=== PATIENT | female | born 1995 | race African-American/Black ===

== ENCOUNTER 2020-01-18 12:42 | Inpatient (IN) | payer OTHER ==
[2020-01-18 15:29] VITALS: BMI 31.0
[2020-01-18] MEDS ORDERED: OXYTOCIN 30 UNITS in 0.9% NS 30 UNIT/500 ML INFUS.BAG IVPB SCH (15:30)
[2020-01-18] MEDS ORDERED: DEXTROSE 5%-LACTATED RINGERS 1,000 ML IV SCH (16:00)
[2020-01-18] MEDS ORDERED: OXYTOCIN 30 UNITS in 0.9% NS 30 UNIT/500 ML INFUS.BAG IVPB ONE (17:33)
[2020-01-18] MEDS ORDERED: BUTORPHANOL TARTRATE 1 MG/ML VIAL IVPB ONE (22:35)
[2020-01-18] MEDS ORDERED: PROMETHAZINE HCL 25 MG/1 ML VIAL IVPB ONE (22:36)
[2020-01-19] MEDS ORDERED: CITRIC ACID/SODIUM CITRATE 30 ML UNIT-DOSE CUP PO ONE (07:42)
[2020-01-19] MEDS ORDERED: ELECTROLYTE-148 SOLN 1,000 ML IV SCH (07:45)
[2020-01-19] MEDS ORDERED: morphine SULFATE/PF 0.5 MG/ML (2cc Syringe - QUVA) ONE (08:16)
[2020-01-19] MEDS ORDERED: PHENYLEPHRINE HCL 10 MG/1 ML SINGLE DOSE VIAL ONE (08:16)
[2020-01-19] MEDS ORDERED: KETAMINE HCL 500 MG/10 ML VIAL ONE (08:48)
[2020-01-19] MEDS ORDERED: MIDAZOLAM HCL 2 MG/2 ML SINGLE DOSE VIAL ONE ×2 (09:15→09:24)
[2020-01-19] MEDS ORDERED: ceFAZolin SODIUM 1 GM VIAL ONE ×2 (09:15)
[2020-01-19] MEDS ORDERED: OXYTOCIN 10 UNITS/ML VIAL ONE ×4 (09:15→09:44)
[2020-01-19] MEDS ORDERED: IBUPROFEN 600 MG TABLET (FP) PO PRN (09:56)
[2020-01-19] MEDS ORDERED: METHYLERGONOVINE MALEATE 0.2 MG/1 ML AMP IM PRN (09:56)
[2020-01-19] MEDS ORDERED: ONDANSETRON 4 MG/2 ML VIAL IVPUSH PRN (10:03)
[2020-01-19] MEDS ORDERED: oxyCODONE HCL 5 MG TABLET PO PRN (10:05)
[2020-01-19] MEDS ORDERED: KETOROLAC TROMETHAMINE 30 MG/1 ML VIAL IVPUSH PRN (10:08)
[2020-01-19] MEDS ORDERED: OXYTOCIN 20 UNITS in 0.9% NS 20 UNIT/1,000 ML INFUS.BAG IV SCH (10:15)
[2020-01-19] MEDS ORDERED: OXYTOCIN 20 UNITS in 0.9% NS 20 UNIT/1,000 ML INFUS.BAG IV ONE (10:20)
[2020-01-19] MEDS: CEFAZOLIN 1 GM/D5W 1 GM/50 ML BAG IVPB SCH (17:42)
[2020-01-19] MEDS: DOCUSATE SODIUM 100 MG CAPSULE (FP) PO SCH (23:18)
[2020-01-20] MEDS: CEFAZOLIN 1 GM/D5W 1 GM/50 ML BAG IVPB SCH ×2 (02:06→10:32)
[2020-01-20 09:01] LABS: BASO % 0.4 % (0-2.0); EOS % 1.6 % (0-4.5); HEMATOCRIT 31.2 % (32.4-45.2); LYMPH % 18.1 % (8-40); MEAN PLT VOLUME 8.4 fl (7.5-11.1); NEUT % 68.9 % (42.8-82.8); PLATELET COUNT 192 K/MM3 (134-434); RDW 24.1 % (11.6-15.6); WHITE BLOOD COUNT 8.9 K/mm3 (4.0-10.0)
[2020-01-20] MEDS ORDERED: BISACODYL 10 MG SUPP.RECT RC PRN (09:57)
[2020-01-20] MEDS: DOCUSATE SODIUM 100 MG CAPSULE (FP) PO SCH ×2 (10:32→22:29)
[2020-01-20 10:45] LABS: ANISOCYTOSIS 2+; PLATELET ESTIMATE NORMAL
[2020-01-20] MEDS: IBUPROFEN 600 MG TABLET (FP) PO PRN (13:40)
[2020-01-20] MEDS: SIMETHICONE 80 MG TAB.CHEW (FP) PO PRN (13:40)
[2020-01-20] MEDS: ACETAMINOPHEN 325 MG TABLET (FP) PO PRN (13:40)
[2020-01-21] MEDS: SIMETHICONE 80 MG TAB.CHEW (FP) PO PRN (03:49)
[2020-01-21] MEDS: IBUPROFEN 600 MG TABLET (FP) PO PRN (03:49)
[2020-01-21] MEDS: ACETAMINOPHEN 325 MG TABLET (FP) PO PRN (03:50)
[2020-01-21] MEDS: DOCUSATE SODIUM 100 MG CAPSULE (FP) PO SCH (09:19)
[2020-01-21 10:03] VITALS: BP 108/69; PULSE 70; TEMP 98.3
== END 2020-01-21 12:00 | disposition home or self-care (01) | DRG 540 ==
LOC: JDEL 12:42 → JLDR 14:00 → J3W 01-19 11:40
PROVIDERS: ADMIT Obstetrics & Gynecology; ATTEND Obstetrics & Gynecology
PROC: 10D00Z1 Extraction of Products of Conception, Low, Open Approach (ICD-10-PCS; principal; 2020-01-19)
DX: O61.0 Failed medical induction of labor (principal); O36.5130 Maternal care for known or suspected placental insufficiency, third trimester, not applicable or unspecified; Z3A.40 40 weeks gestation of pregnancy; Z37.0 Single live birth
CPT/HCPCS: 36415; 36600; 82803; 85025; 88307-TC; U0003